=== PATIENT | male | born 1960 | race Caucasian/White ===

== ENCOUNTER 2017-07-17 07:01 | Day surgery (SDC) | payer OTHER ==
[~2017-07-17] VITALS: Ht 182.9 cm; Wt 95.2 kg
[~2017-07-17 07:01] MED LIST: Aspirin EC81 MG PO; Hair, Skin & N1 EACH PO
== END 2017-07-17 08:43 | disposition home or self-care (01) ==
LOC: ORSCMMR 07:01
PROVIDERS: Internal Medicine Gastroenterology
PROC: 0DBM8ZX Excision of Descending Colon, Via Natural or Artificial Opening Endoscopic, Diagnostic (ICD-10-PCS; principal; 2017-07-17 08:00)
DX: Z12.11 Encounter for screening for malignant neoplasm of colon (principal); D12.4 Benign neoplasm of descending colon; K64.8 Other hemorrhoids; Z80.0 Family history of malignant neoplasm of digestive organs; Z79.82 Long term (current) use of aspirin; I25.10 Atherosclerotic heart disease of native coronary artery without angina pectoris
CPT/HCPCS: 88305; J7120

== ENCOUNTER → 2021-04-19 | Outpatient (CLI) | payer OTHER | END | disposition home or self-care (01) | LOC: LAB SHORT 12:12 | DX: L90.5 Scar conditions and fibrosis of skin (principal); D22.5 Melanocytic nevi of trunk | CPT/HCPCS: 88305 ==

== ENCOUNTER → 2021-08-07 | Outpatient (CLI) | payer OTHER | END | disposition home or self-care (01) | LOC: LAB SHORT 17:32 | DX: R30.9 Painful micturition, unspecified (principal) | CPT/HCPCS: 87086 ==

== ENCOUNTER → 2021-09-09 | Outpatient (CLI) | payer OTHER | END | disposition home or self-care (01) | LOC: LAB SHORT 05:00 → LAB FUT 09-06 12:30 | DX: N20.2 Calculus of kidney with calculus of ureter (principal) | CPT/HCPCS: 81050 ==

== ENCOUNTER 2025-01-21 07:15 | Day surgery (SDC) | payer OTHER ==
[2025-01-21] VITALS (15 sets, daily range): BP systolic 98–162; BP diastolic 64–99
[~2025-01-21] VITALS: Ht 182.9 cm; Wt 88.0 kg
--- NOTE | 2025-01-21 08:55 | NUR ---
01/21/25 0855 Maria Isabel Cruz CONFIRMED AND REVIEWED H&P, MEDCICATIONS, ALLERGIES, MEDICAL HISTORY, RESPIRATORY HISTORY, VITAL SIGNS, 3-LEAD EKG, CONSENTS, AND PHYSICIAN ORDERS. PATIENT CONFIRMS NPO STATUS AND AGREES WITH SCHEDULED PROCEDURE. MONITOR INTACT WITH CONTINUOUS PULSE OXIMETRY, CAPNOGRAPHY, 3-LEAD EKG, INTERMITTENT BP. SUPPLEMENTAL O2 TO BE TITRATED THROUGHOUT PROCEDURE TO MAINTAIN O2 SATURATION ABOVE 90%. PATIENT DETERMINED TO BE ASA APPROPRIATE FOR PROPOFOL SEDATION PRIOR TO START OF PROCEDURE BY DR. DUMONT. MALLAMPATI CLASS 2 AIRWAY: COMPLETE VISUALIZATION OF THE [facility].
--- NOTE | 2025-01-21 09:33 | NUR ---
Ambulatory in Day Surgery. History, Chart, Medications and Allergies reviewed before start of procedure. Lungs clear T/O to Auscultation. Patient confirms NPO status and agrees with scheduled surgery. Pre-Op teaching done. Pt verbalizes understanding. Patient States Post-Procedure ride home has been arranged.
--- NOTE | 2025-01-21 09:44 | NUR ---
Patient up to Ambulate independently. Gait steady. Discharge instructions reviewed with patient. Patient verbalizes understanding. Copy given to patient to take home. Discharged via wheelchair to private car for ride home.
== END 2025-01-21 09:44 | disposition home or self-care (01) ==
LOC: ORSCMMR 07:15
PROVIDERS: Internal Medicine Gastroenterology
PROC: 0DBN8ZX Excision of Sigmoid Colon, Via Natural or Artificial Opening Endoscopic, Diagnostic (ICD-10-PCS; principal; 2025-01-21 08:30)
DX: Z12.11 Encounter for screening for malignant neoplasm of colon (principal); K63.5 Polyp of colon; K64.8 Other hemorrhoids; Z80.0 Family history of malignant neoplasm of digestive organs; Z86.0101 Personal history of adenomatous and serrated colon polyps; Z79.82 Long term (current) use of aspirin
CPT/HCPCS: 88305; J2704; J7120